=== PATIENT | male | born 1955 | race Caucasian/White ===

== ENCOUNTER → 2016-11-09 | Outpatient (CLI) | payer BC | END | disposition home or self-care (01) | LOC: LAB.O 08:19 | PROVIDERS: ATTEND Emergency Medicine | DX: Z00.00 Encounter for general adult medical examination without abnormal findings (principal); I10 Essential (primary) hypertension; E78.5 Hyperlipidemia, unspecified ==

== ENCOUNTER 2016-11-14 05:06 | Emergency (ER) | payer BC ==
--- NOTE | 2016-11-14 05:23 | ED.PDOC ---
History of Present Illness - General Source: patient, RN notes reviewed, Vital Signs reviewed, EMS Exam Limitations: no limitations - History of Present Illness Initial Comments: Per EMS they were called to [facility] due to patient being confused and disoriented. Could not remember date or where he was. Patient reports he feels fine and that his only problem is he should not have gone to sleep. He was at work and was on lunch break. Reports he fell asleep in his car. Very poor historian. Can't tell me where he is or what year it is. He appears to have vomited at some point. Coworkers found him in his car because he backed up over some carts. He keeps telling the nurses that he weighs 2090#s at the end of the month. Timing/Duration: unknown Severity: moderate Improving Factors: nothing Worsening Factors: nothing Associated Symptoms: confusion <Areli Cronin - Last Filed: 11/14/16 06:49> <Cortez Jaime - Last Filed: 11/14/16 13:14> - General Chief Complaint: Neuro Symptoms/Deficits Stated Complaint: disoriented Time Seen by Provider: 11/14/16 05:12 - History of Present Illness Allergies/Adverse Reactions: Allergies NO KNOWN ALLERGY Allergy (Verified 11/14/16 05:42) Home Medications: Ambulatory Orders Lisinopril & Hydrochlorothiazi 11/14/16 Review of Systems - Review of Systems Review of Systems: 11/14/16 05:29 Patient reports no symptoms. Answered no to every question Constitutional: States: no symptoms reported. Denies: chills, fever, malaise EENTM: States: no symptoms reported. Denies: blurred vision Respiratory: States: no symptoms reported. Denies: cough, short of breath Cardiology: States: no symptoms reported. Denies: chest pain, palpitations, syncope Gastrointestinal/Abdominal: States: no symptoms reported. Denies: abdominal pain Musculoskeletal: States: no symptoms reported Skin: States: no symptoms reported Neurological: States: other - confused. Denies: headache <Areli Cronin - Last Filed: 11/14/16 06:49> Past Medical History (General) - Patient Medical History Hx Other PMH: Yes - Brain Abscess Surgical History: other <Cortez Jaime - Last Filed: 11/14/16 13:14> Family Medical History - Family History Father Family History: Unknown <Areli Cronin - Last Filed: 11/14/16 06:49> Physical Exam - Physical Exam General Appearance: Alert, Comfortable, No apparent distress, Obese, Well Developed, Well Groomed, Well Hydrated, Well Nourished Eye Exam: bilateral normal ENT Exam: hearing grossly normal, TMs normal, pharynx normal, other - Appears to have bit his tongue Neck: full range of motion, supple, normal inspection Respiratory: lungs clear, normal breath sounds, no respiratory distress, no accessory muscle use Cardiovascular/Chest: no gallop, tachycardia, systolic murmur Peripheral Pulses: posterior tibialis,right: 2+, posterior tibialis,left: 2+ Gastrointestinal/Abdominal: normal bowel sounds, non tender, soft, no organomegaly, no pulsatile mass Extremities Exam: non-tender, normal range of motion, no evidence of injury, no edema 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 He has surgery at that time. His symptoms prior to that were just progressive confusion. 11/14/16 06:10 Patient is less confused. Now can remember date and who president is. Reports he remembers trying to move his car and backing into carts. Remembers people coming out from work to check on him. Labs show elevated WBC, BUN, Creatinine, CPK and CK-MB. Will given IV fluids and plan to repeat cardiac enzymes in [address] and CXR show no acute changes. 11/14/16 06:12 Per patient and no history of heart murmur bur he currently has a distinct 3/6 systolic murmur. 11/14/16 06:49 Lactic Acid elevated @ 3.2. Will get UA and blood culture 11/14/16 06:[address] Jaime @ 07:00 - EKG/XRAY/CT EKG: Atrial, Tachy, ST depression - V4-6 Comments: Rate 104 <Areli Cronin - Last Filed: 11/14/16 06:49> - Results/Orders Results/Orders: Laboratory Tests 11/14/16 11/14/16 11/14/16 05:20 05:20 06:10 WBC 18.2 H RBC 5.10 Hgb 15.0 Hct 44.6 MCV 87.3 MCH 29.4 MCHC 33.7 RDW 14.1 Plt Count 251 MPV 9.1 Absolute Neuts (auto) 15.70 H Absolute Lymphs (auto) 1.90 Absolute Monos (auto) 0.50 Absolute Eos (auto) 0.00 Absolute Basos (auto) 0.10 Neutrophils % 86.3 H Lymphocytes % 10.5 L Monocytes % 2.7 Eosinophils % 0.2 L Basophils % 0.3 Sodium 134 L Potassium 4.4 Chloride 101 Carbon Dioxide 18 L Anion Gap 19.4 H BUN 32 H Creatinine 1.78 H BUN/Creatinine Ratio 18.0 Random Glucose 246 H Serum Osmolality 283.3 Lactic Acid 3.2 H* Calcium 9.5 Total Bilirubin 0.6 AST 31 ALT 39 Alkaline Phosphatase 69 Creatine Kinase 261 H* CK-MB (CK-2) 4.8 H* CK-MB (CK-2) % 1.84 Troponin I 0.03 Serum Total Protein 7.7 Albumin 4.6 Globulin 3.1 Albumin/Globulin Ratio 1.5 Urine Color Urine Appearance Urine pH Ur Specific [place] Urine Protein Urine Glucose (UA) Urine Ketones Urine Blood Urine Nitrite Urine Bilirubin Urine Urobilinogen Ur Leukocyte Esterase Urine RBC Urine WBC Ur Epithelial Cells Urine Bacteria Hyaline Casts 11/14/16 06:54 WBC RBC Hgb Hct MCV MCH MCHC RDW Plt Count MPV Absolute Neuts (auto) Absolute Lymphs (auto) Absolute Monos (auto) Absolute Eos (auto) Absolute Basos (auto) Neutrophils % Lymphocytes % Monocytes % Eosinophils % Basophils % Sodium Potassium Chloride Carbon Dioxide Anion Gap BUN Creatinine BUN/Creatinine Ratio Random Glucose Serum Osmolality Lactic Acid Calcium Total Bilirubin AST ALT Alkaline Phosphatase Creatine Kinase CK-MB (CK-2) CK-MB (CK-2) % Troponin I Serum Total Protein Albumin Globulin Albumin/Globulin Ratio Urine Color Yellow Urine Appearance Clear Urine pH 5.5 Ur Specific [place] >= 1.030 Urine Protein 100 H Urine Glucose (UA) Negative Urine Ketones Negative Urine Blood Trace-lysed H Urine Nitrite Negative Urine Bilirubin Negative Urine Urobilinogen 0.2 Ur Leukocyte Esterase Negative Urine RBC 0-1 Urine WBC 0-1 Ur Epithelial Cells 1-3 Urine Bacteria Rare Hyaline Casts 0-1 Laboratory Tests 11/14/16 11/14/16 11/14/16 05:20 05:20 06:10 WBC 18.2 H RBC 5.10 Hgb 15.0 Hct 44.6 MCV 87.3 MCH 29.4 MCHC 33.7 RDW 14.1 Plt Count 251 MPV 9.1 Absolute Neuts (auto) 15.70 H Absolute Lymphs (auto) 1.90 Absolute Monos (auto) 0.50 Absolute Eos (auto) 0.00 Absolute Basos (auto) 0.10 Neutrophils % 86.3 H Lymphocytes % 10.5 L Monocytes % 2.7 Eosinophils % 0.2 L Basophils % 0.3 Sodium 134 L Potassium 4.4 Chloride 101 Carbon Dioxide 18 L Anion Gap 19.4 H BUN 32 H Creatinine 1.78 H BUN/Creatinine Ratio 18.0 Random Glucose 246 H Serum Osmolality 283.3 Lactic Acid 3.2 H* Calcium 9.5 Total Bilirubin 0.6 AST 31 ALT 39 Alkaline Phosphatase 69 Creatine Kinase 261 H* CK-MB (CK-2) 4.8 H* CK-MB (CK-2) % 1.84 Troponin I 0.03 Serum Total Protein 7.7 Albumin 4.6 Globulin 3.1 Albumin/Globulin Ratio 1.5 Urine Color Urine Appearance Urine pH Ur Specific [place] Urine Protein Urine Glucose (UA) Urine Ketones Urine Blood Urine Nitrite Urine Bilirubin Urine Urobilinogen Ur Leukocyte Esterase Urine RBC Urine WBC Ur Epithelial Cells Urine Bacteria Hyaline Casts CSF Appearance CSF Color CSF WBC CSF RBC CSF Neutrophils CSF Lymphocytes CSF Glucose CSF Total Protein 11/14/16 11/14/16 11/14/16 06:54 08:25 08:25 WBC RBC Hgb Hct MCV MCH MCHC RDW Plt Count MPV Absolute Neuts (auto) Absolute Lymphs (auto) Absolute Monos (auto) Absolute Eos (auto) Absolute Basos (auto) Neutrophils % Lymphocytes % Monocytes % Eosinophils % Basophils % Sodium Potassium Chloride Carbon Dioxide Anion Gap BUN Creatinine BUN/Creatinine Ratio Random Glucose Serum Osmolality Lactic Acid Calcium Total Bilirubin AST ALT Alkaline Phosphatase Creatine Kinase CK-MB (CK-2) CK-MB (CK-2) % Troponin I Serum Total Protein Albumin Globulin Albumin/Globulin Ratio Urine Color Yellow Urine Appearance Clear Urine pH 5.5 Ur Specific [place] >= 1.030 Urine Protein 100 H Urine Glucose (UA) Negative Urine Ketones Negative Urine Blood Trace-lysed H Urine Nitrite Negative Urine Bilirubin Negative Urine Urobilinogen 0.2 Ur Leukocyte Esterase Negative Urine RBC 0-1 Urine WBC 0-1 Ur Epithelial Cells 1-3 Urine Bacteria Rare Hyaline Casts 0-1 CSF Appearance Clear CSF Color Colorless CSF WBC 0 CSF RBC 1 CSF Neutrophils 0.0 CSF Lymphocytes 0.0 CSF Glucose 95 H* CSF Total Protein 48.4 H* 11/14/16 11/14/16 11/14/16 08:45 08:45 11:50 WBC RBC Hgb Hct MCV MCH MCHC RDW Plt Count MPV Absolute Neuts (auto) Absolute Lymphs (auto) Absolute Monos (auto) Absolute Eos (auto) Absolute Basos (auto) Neutrophils % Lymphocytes % Monocytes % Eosinophils % Basophils % Sodium Potassium Chloride Carbon Dioxide Anion Gap BUN Creatinine BUN/Creatinine Ratio Random Glucose Serum Osmolality Lactic Acid 1.5 Calcium Total Bilirubin AST ALT Alkaline Phosphatase Creatine Kinase CK-MB (CK-2) CK-MB (CK-2) % Troponin I 1.36 H* 3.36 H* Serum Total Protein Albumin Globulin Albumin/Globulin Ratio Urine Color Urine Appearance Urine pH Ur Specific [place] Urine Protein Urine Glucose (UA) Urine Ketones Urine Blood Urine Nitrite Urine Bilirubin Urine Urobilinogen Ur Leukocyte Esterase Urine RBC Urine WBC Ur Epithelial Cells Urine Bacteria Hyaline Casts CSF Appearance CSF Color CSF WBC CSF RBC CSF Neutrophils CSF Lymphocytes CSF Glucose CSF Total Protein <Cortez Jaime R - Last Filed: 11/14/16 13:14> Procedures - Additional Procedures Additional Procedures: lumbar puncture - Patient placed sitting position and advised to bent over area cleanse lumbosacra area then after strerile prepped space L4-L5 was localized and attempt 4x w/ spinal needle G22/3 1/2 inch unable to draw fluid then replaced with G 22 5 inch spinal needle and able to get to L4-L5 space 0pening pressure 3 clear fluid noted 4 tubes filled w/2ml of spinal fluid and sent to lab for spinal fluid analysis. Patient tolerated procedure well.l <Cortez Jaime - Last Filed: 11/14/16 13:14> Departure <RoseanneAreli - Last Filed: 11/14/16 06:49> - Departure Time of Disposition: 13:06 <Cortez Jaime - Last Filed: 11/14/16 13:14> - Departure Clinical Impression: Non-ST elevation [place] (NSTEMI), Renal insufficiency, Hyperglycemia, unspecified Altered mental status, unspecified Qualifiers: Altered mental status type: disorientation Qualified Code(s): R41.0 - Disorientation, unspecified Disposition: Transfer to Hospital Condition: Good Departure Forms: Patient Portal Self Enrollment Referrals: PALMER AQUINO [Primary Care Provider] - 1-2 Weeks Home Medications: Ambulatory Orders Lisinopril & Hydrochlorothiazi 11/14/16 Transfer to Outside Facility - Transfer Information Accepting Provider:: D/W Dr. Vivian Jackson-JUSTYNA Borja Accepting Facility: [facility] Reason for Transfer: required specialist not available <Cortez Jaime - Last Filed: 11/14/16 13:14>
--- NOTE | 2016-11-14 05:51 | RAD ---
Clinical History : confusion , MAIN Exam : Portable AP view of the chest 11/14/2016 5:18 AM CDT Comparisons : none Findings : The lungs are low in volume which accentuates the pulmonary vasculature. There is patchy bibasilar subsegmental airspace disease. There is otherwise no focal consolidation or pleural effusion.. The heart is normal in size. The mediastinal contours are normal in appearance. The thoracic spine is age appropriate. The shoulders are unremarkable. Limited evaluation of the upper abdomen demonstrates no gross abnormalities. Impression: Low lung volumes with patchy bibasilar airspace disease. Electronically signed by: Angélica Jaquez MD 11/14/2016 5:50 AM CDT
--- NOTE | 2016-11-14 05:55 | CT ---
Procedure: CT HEAD WITHOUT IV CONTRAST Exam Date: 11/14/2016 Ordering Provider: Areli Cronin Clinical Indication: confusion Comparison: None Technique: Using a helical scanner, sequential axial imaging of the brain was obtained without the administration of intravenous contrast. The exam was obtained from the skull base to vertex. This exam was performed according to our departmental dose optimization program which includes use of automated exposure control, adjustment of the mA and/or kV according to patient size and/or use of iterative reconstruction technique. Findings: Mild cerebral and cerebellar volume loss. There is no midline shift or hydrocephalus. There is no acute intracranial hemorrhage or mass effect. There is no acute infarct. Encephalomalacia in the left temporal/occipital region. Hypodensities in the periventricular and subcortical white matter of both cerebral hemispheres are nonspecific but likely related to chronic ischemic small vessel disease. Postsurgical changes in the posterior left calvarium. No acute calvarial fracture. There is no lytic or sclerotic lesion. The visualized paranasal sinuses and mastoid air cells are unremarkable. IMPRESSION: No acute intracranial abnormality demonstrated. Electronically signed by: Oswald Cartwright MD 11/14/2016 5:54 AM CDT
[2016-11-14] MEDS ORDERED: SODIUM CHLORIDE 0.9% 1000ML 1,000 ML IVS ONE (06:04)
[2016-11-14] MEDS ORDERED: LIDOCAINE 1% 10 ML VIAL INJ ONE (07:51)
[2016-11-14] MEDS ORDERED: cefTRIAXone SODIUM 2 GM in SODIUM CHL 0.9% 100ML MINI-BAG 100 ML IVPB ONE (08:37)
[2016-11-14] MEDS ORDERED: SODIUM CHL 0.9% 100ML MINI-BAG 100 ML IVPB ONE (08:47)
[2016-11-14] MEDS ORDERED: ASPIRIN TABLET 325 MG TAB PO ONE (12:52)
[2016-11-14 13:43] VITALS: BP 150/76; TEMP 99.1; O2SAT 95
== END 2016-11-14 13:43 | disposition short-term general hospital (02) ==
LOC: ER 05:06
DX: I21.4 Non-ST elevation (NSTEMI) myocardial infarction (principal); N28.9 Disorder of kidney and ureter, unspecified; R73.9 Hyperglycemia, unspecified; R41.0 Disorientation, unspecified
CPT/HCPCS: 36415; 36416; 70450; 71010; 80053; 81001; 82550; 82553; 82945; 83605; 84157; 84484; 85025; 86403; 87040; 87070; 87205; 89051; 93005; J0696; J7030; J7050

== ENCOUNTER 2017-04-06 19:40 | Emergency (ER) | payer BC ==
[~2017-04-06 19:40] MED LIST: MIDAZOLAM INJ 5 MG/5 ML VIAL ONE
[2017-04-06] MEDS ORDERED: SODIUM CHLORIDE 0.9% (FLUSH) 10 ML SYG IV PRN (19:51)
[2017-04-06] MEDS ORDERED: ASPIRIN TABLET 325 MG TAB PO ONE (19:51)
[2017-04-06] MEDS ORDERED: PHENYTOIN SODIUM INJ 100 MG/2 ML VIAL IV ONE (20:22)
[2017-04-06] MEDS ORDERED: PHENYTOIN SODIUM INJ 100 MG/2 ML VIAL ONE ×2 (20:22→20:23)
[2017-04-06] MEDS ORDERED: SODIUM CHLORIDE 0.9% IVPB ONE (20:23)
[2017-04-06] MEDS ORDERED: PHENYTOIN SODIUM IVPB ONE (20:23)
--- NOTE | 2017-04-06 20:31 | ED.PDOC ---
History of Present Illness - General Chief Complaint: Neuro Symptoms/Deficits Stated Complaint: altered LOC Time Seen by Provider: 04/06/17 19:43 Source: patient, family Exam Limitations: clinical condition - History of Present Illness Timing/Duration: 1/2 hour Severity: moderate Improving Factors: nothing Worsening Factors: nothing Associated Symptoms: denies symptoms Allergies/Adverse Reactions: Allergies NO KNOWN ALLERGY Allergy (Verified 04/06/17 19:56) Home Medications: Ambulatory Orders Lisinopril & Hydrochlorothiazi 11/14/16 Review of Systems - Review of Systems Constitutional: Denies: chills, diaphoresis, fever, weakness EENTM: Denies: eye pain, ear pain, ear discharge, throat pain, mouth pain Respiratory: Denies: cough, short of breath Cardiology: Denies: chest pain, edema Gastrointestinal/Abdominal: Denies: abdominal pain, diarrhea, nausea, vomiting Genitourinary: Denies: discharge, dysuria Musculoskeletal: Denies: joint pain, joint swelling, muscle pain Skin: Denies: change in hair/nails Neurological: Denies: headache, numbness, paresthesia, seizure, tremors Endocrine: Denies: increased hunger, increased thirst, increased urine Hematologic/Lymphatic: Denies: blood clots, easy bleeding Unable to Obtain Due To: condition All other Systems: Reviewed and Negative Past Medical History (General) - Patient Medical History Hx Cardiac Disorders: Yes - CABG 2017 Hx Congestive Heart Failure: No Hx Diabetes: Yes - Vaccination History Hx Tetanus, Diphtheria Vaccination: No Hx Influenza Vaccination: No Hx Pneumococcal Vaccination: No - Social History Hx Tobacco Use: Yes Hx Alcohol Use: No Family Medical History - Family History Father Family History: Unknown Physical Exam - Physical Exam General Appearance: Alert, Comfortable Eye Exam: bilateral normal ENT Exam: normal ENT inspection, hearing grossly normal, TMs normal Neck: non-tender, full range of motion, supple, normal inspection Respiratory: chest non-tender, lungs clear, normal breath sounds, no respiratory distress, no accessory muscle use Cardiovascular/Chest: normal peripheral pulses, regular rate, rhythm Gastrointestinal/Abdominal: normal bowel sounds, non tender, soft, no organomegaly Back Exam: normal inspection, no CVA tenderness Mental Status: alert, 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 HOW DOES NOT APPEAR TO BE ACUTE CONFUSION, BUT APPEARS TO BE INAPPROPRIATE WORD SELECTION LIKE WERNIKIES APHASIA. WILL ACTIVATE AN ACUTE STROKE. 04/06/17 20:[address] HAD SZ. HAD COLOR CHANGE TO BLUE WITH THIS. PLACED ON OXYGEN. I PLACED AN 18G IN THE LEFT EJ. GAVE ATIVAN 2MG X 2. STILL CONFUSED. IF REMAINS MARKEDLY CONFUSED WITH DEPRESSED LOC MAY NEED TO INTUBATE. UNLIKELY A TPA CANDIDATE GIVEN THE INTRACRANIAL SURGERY. WILL DISCUSS WITH NEUROLOGY AND WILL NEED TRANSFER TO HIGHER LEVEL OF CARE. 04/06/17 20:47 ct without acute intra-cranial hemorrhage. still markedly depressed level of consciousness. will intubate for airway protection. i have discussed with Dr ARTHUR, AGREE WITH SZ IS NOT A TPA CANDIDATE. WILL TRANSFER TO [facility] ER. 04/06/17 21:24 NOT ROUSING WELL, SO WAS INTUBATED FOR AIRWAY PROTECTION. WILL START ON VERSED DRIP. BECAME HYPOTENSIVE. FLUID BOLUS GIVEN. PT CRITCALLY ILL. - Results/Orders Results/Orders: 04/06/17 19:51 Sodium Chloride 0.9% (Flush) [Saline Flush Syringe] 10 ml IV PRN PRN 04/06/17 19:52 IV Care:Saline Lock per Protoc QSHIFT Telemetry .ONCE EKG Assessment ONCE 04/06/17 20:00 EKG STAT 04/06/17 20:50 Mechanical Ventilation DAILY 04/06/17 21:00 Midazolam Inj [Versed Inj] 25 mg Sodium Chloride 0.9% 50Ml [NS 50ml] 25 ml IVPB .Q24H 04/06/17 21:23 Chest,1 View [RAD] Stat 04/06/17 21:25 Chest,1 View [RAD] Stat Laboratory Results - last 24 hr 04/06/17 04/06/17 04/06/17 20:35 20:35 20:35 WBC 13.8 H RBC 5.27 Hgb 14.5 Hct 45.2 MCV 85.8 MCH 27.6 MCHC 32.1 L RDW 17.1 H Plt Count 261 MPV 8.8 Absolute Neuts (auto) 6.80 Absolute Lymphs (auto) 4.80 H Absolute Monos (auto) 1.80 H Absolute Eos (auto) 0.30 Absolute Basos (auto) 0.10 Neutrophils % 49.2 Lymphocytes % 34.8 Monocytes % 13.0 H Eosinophils % 2.1 Basophils % 0.9 PT 11.5 INR 1.020 PTT (SP) 36.2 Sodium 135 Potassium 4.2 Chloride 96 L Carbon Dioxide 17 L Anion Gap 26.2 H BUN 23 H Creatinine 1.82 H BUN/Creatinine Ratio 12.6 POC Glucose Random Glucose 132 H Serum Osmolality 275.6 Calcium 9.6 Total Bilirubin 0.8 AST 30 ALT 23 Alkaline Phosphatase 113 Creatine Kinase 182 H CK-MB (CK-2) 2.6 CK-MB (CK-2) % Not Reportable Troponin I < 0.02 Serum Total Protein 7.5 Albumin 4.5 Globulin 3.0 Albumin/Globulin Ratio 1.5 04/06/17 20:35 WBC RBC Hgb Hct MCV MCH MCHC RDW Plt Count MPV Absolute Neuts (auto) Absolute Lymphs (auto) Absolute Monos (auto) Absolute Eos (auto) Absolute Basos (auto) Neutrophils % Lymphocytes % Monocytes % Eosinophils % Basophils % PT INR PTT (SP) Sodium Potassium Chloride Carbon Dioxide Anion Gap BUN Creatinine BUN/Creatinine Ratio POC Glucose 126 H Random Glucose Serum Osmolality Calcium Total Bilirubin AST ALT Alkaline Phosphatase Creatine Kinase CK-MB (CK-2) CK-MB (CK-2) % Troponin I Serum Total Protein Albumin Globulin Albumin/Globulin Ratio - EKG/XRAY/CT EKG: Sinus - SINUS RYTHM AT 85, AXIS IS NORMAL, PROLONGED WY INTERVAL, NO ACUTE ST SEGMENT CHANGES. IMPRESSION: NRS WITH 1ST DEGREE AV BLOCK. Procedures - Intubation Time of Intubation: 21:15 Intubation Method: orotracheal Tube Size (cm): 7.5 Medications: Succinylcholine Breath Sounds after Intubation: equal Intubation Complications: no complications Post Intubation Xray: Yes Progress/Xray Impression: GOOD PLACEMENT Departure - Departure Clinical Impression: Acute ischemic stroke, Wernicke dysphasia, Tonic-clonic generalized seizure, Stroke-like symptoms Clinical Impression: (Ruled Out): Bipolar disorder, Depressive disorder, Drug overdose, Dementia, Hyponatremia, Hypernatremia, Subacute subdural hematoma, Intracerebral hemorrhage, Subarachnoid hematoma Time of Disposition: 22:00 Disposition: Transfer to Hospital Condition: Serious Departure Forms: ED Discharge - Pt. Copy, Patient Portal Self Enrollment Referrals: PALMER AQUINO [Primary Care Provider] - 1-2 Weeks Home Medications: Ambulatory Orders Lisinopril & Hydrochlorothiazi 11/14/16 Critical Care Note - Critical Care Note Total Time (mins): 55 Comments: CRITICAL CARE NOTE CRITICAL CARE INDICATION: STATUS EPILEPTICUS, ACUTE STROKE, WERNIKIES APHASIA, RESPIRATORY FAILURE, HYPOTENSION CRITICAL CARE FINDINGS: PROLONGED SEIZURE ACTIVITY, DEPRESSED LOC, SYSTOLIC BP OF 74 CRITICAL CARE INTERVENTIONS: MULTIPLE CONSULTANTS, IV ATIVAN, IV DILANTIN, VENTILATOR MANAGEMENT CRITICAL CARE TIME: 55 MINUTES WHERE SPENT AT THE BEDSIDE PERFORMING THE INITIAL HISTORY AND PE, PLACING ORDERS, CHART AND IMAGING REVIEW, DOCUMENTATION TIME. Transfer to Outside Facility - Transfer Information Accepting Provider:: VIV Accepting Facility: [facility] Reason for Transfer: ICU
[2017-04-06 20:44] VITALS: O2SAT 97
--- NOTE | 2017-04-06 20:44 | CT ---
EXAM: Head CLINICAL INDICATION: 61-year-old male with new onset Wernicke's aphasia. COMPARISON: None. TECHNIQUE: CT brain without contrast. This exam was performed according to our departmental dose optimization program which includes use of automated exposure control, adjustment of the mA and/or kV according to patient size and/or use of iterative reconstruction technique. FINDINGS: Examination findings are limited secondary to streak artifact through the skull base, posterior fossa and anterior temporal lobes. Multifocal regions of patchy hypoattenuation are present in a subcortical and periventricular deep white matter distribution, nonspecific; however, most likely represent small vessel ischemic disease, age indeterminate. Focal area subcortical hypoattenuation suggestive of gliosis and encephalomalacia present at the level of the posterior lateral LEFT temporal lobe stable in comparison to the previous examination ingesting sequela of prior surgery. Adjacent calvarial postoperative changes with overlying surgical plates stable in appearance since the previous examination. The ventricles, sulci, and cisterns are symmetric and unremarkable. The lees-white matter differentiation is preserved. There is no mass effect, midline shift, intra- or extra-axial fluid collection/acute hemorrhage. The osseous structures are unremarkable. The paranasal sinuses and mastoid air cells are clear. IMPRESSION: 1. No acute intracranial abnormalities. Nonspecific white matter change most likely small vessel ischemic disease, age indeterminate. 2. CT is insensitive for early evaluation of acute stroke. If there is clinical concern for acute ischemia, an MRI may be considered. 3. Postoperative changes of the LEFT posterior lateral temporal lobe with gliosis and encephalomalacia stable in comparison to examination dated 11/14/2016. Electronically signed by: Enma Rosas MD 04/06/2017 8:43 PM [facility]
[2017-04-06] MEDS ORDERED: ETOMIDATE INJECTION 2 MG/ML 20ML VIAL IV ONE ×2 (20:52→21:15)
[2017-04-06] MEDS ORDERED: SUCCINYLCHOLINE CHLORIDE 200 MG/10 ML VIAL IV ONE (20:53)
[2017-04-06] MEDS ORDERED: SUCCINYLCHOLINE CHLORIDE 200 MG/10 ML VIAL ONE (20:55)
[2017-04-06] MEDS ORDERED: MIDAZOLAM INJ 5 MG/5 ML VIAL ONE ×3 (20:56→21:36)
[2017-04-06] MEDS ORDERED: MIDAZOLAM INJ 25 MG in SODIUM CHLORIDE 0.9% 50ML 25 ML IVPB SCH (21:00)
--- NOTE | 2017-04-06 21:00 | RAD ---
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 Lungs are otherwise clear. No pneumothorax or pleural effusion. Prior median sternotomy. Unremarkable cardiac silhouette. Impression: Mild bibasilar atelectasis. Electronically signed by: Jm Ortiz MD 04/06/2017 8:59 PM TIRE TRUCKER
[2017-04-06] MEDS ORDERED: SODIUM CHLORIDE 0.9% 100ML 0 ML IVPB ONE (21:15)
[2017-04-06] MEDS ORDERED: SODIUM CHLORIDE 0.9% 1000ML 1,000 ML ONE (21:17)
[2017-04-06] MEDS ORDERED: PHENYTOIN SODIUM INJ 250 MG/5 ML VIAL ONE (21:29)
[2017-04-06] MEDS ORDERED: SODIUM CHLORIDE 0.9% 100ML 100 ML IVPB ONE (21:30)
[2017-04-06] MEDS ORDERED: SODIUM CHLORIDE 0.9% 50ML 50 ML ONE (21:36)
--- NOTE | 2017-04-06 21:40 | RAD ---
Procedure: XR CHEST 1 VIEW Exam Date: 04/06/2017 9:25 PM CREDIT RISK ANALYST Ordering Provider: Charlie Torres Clinical Indication: tube placement Comparison: None Findings: The endotracheal tube tip is seen at the level of the jerome. NG tube tip is in the stomach but is difficult to assess secondary to patient body habitus and poor penetration of the x-ray beam. Lung volumes are low and there is bilateral perihilar atelectasis. No pleural effusion or pneumothorax is present. Heart size is upper limits of normal. Postoperative changes of previous CABG surgery are present. Impression: Support apparatus in expected position. Mild bilateral perihilar atelectasis. Previous CABG surgery. Electronically signed by: Darian Oden MD 04/06/2017 9:39 PM CREDIT RISK ANALYST
[2017-04-06 21:46] VITALS: TEMP 96.9
[2017-04-06 21:55] VITALS: BP 106/65
== END 2017-04-06 21:55 | disposition short-term general hospital (02) ==
LOC: ER 19:40
DX: I63.9 Cerebral infarction, unspecified (principal); R47.02 Dysphasia; G40.409 Other generalized epilepsy and epileptic syndromes, not intractable, without status epilepticus; Z95.1 Presence of aortocoronary bypass graft; Z87.891 Personal history of nicotine dependence
CPT/HCPCS: 31500; 36415; 70450; 71045; 80053; 82550; 82553; 82948; 84484; 85025; 85610; 85730; 93005; 94770; A4216; J0330; J2060; J2250; J7030; J7050

== ENCOUNTER 2018-01-10 15:00 | Emergency (ER) | payer BC ==
[2018-01-10 15:26] VITALS: TEMP 98.4
[2018-01-10] MEDS ORDERED: OXYMETAZOLINE NASAL SPRAY 15 ML BTTL ONE (16:04)
--- NOTE | 2018-01-10 16:14 | ED.PDOC ---
History of Present Illness - General Chief Complaint: ENT Problem Stated Complaint: Nose bleed x 1 1/2 hours Time Seen by Provider: 01/10/18 16:11 Source: patient Exam Limitations: no limitations - History of Present Illness Initial Comments: the patient is a 62-year-old male presenting to the emergency room secondary to right-sided epistaxis. The patient picked a scab in his nose and has been unable to stop the bleeding for the last couple of hours. He went to the urgent care center and they were unable to control it with exterior pressure. The source of the bleeding does appear to be the base of the nasal septum on the right approximately 1/2 inch back. There is a tissue tear there. Bleeding does appear to be venous rather than arterial. he does take Plavix as a blood thinner. Timing/Duration: 1-3 hours Severity: mild Improving Factors: nothing Worsening Factors: nothing Associated Symptoms: denies symptoms Allergies/Adverse Reactions: Allergies NO KNOWN ALLERGY Allergy (Verified 09/13/17 20:07) Home Medications: Ambulatory Orders Amlodipine Besylate 10 mg PO DAILY 09/13/17 Aspirin [Adult Aspirin Regimen] 81 mg PO DAILY 09/13/17 Atorvastatin Calcium [Lipitor] 40 mg PO BEDTIME 09/13/17 Carvedilol [Coreg] 6.25 mg PO BID 09/13/17 Clopidogrel Bisulfate [Plavix] 75 mg PO QD 09/13/17 Lisinopril & Hydrochlorothiazi [Lisinopril/Hctz 10-12.5 mg] 1 tab PO DAILY 09/13 Multiple Vitamins W/ Minerals [Mens 50+ Multi Vitamin &] 1 tab PO DAILY Pantoprazole Tablet [Protonix] 40 mg PO BID 09/13/17 Spironolactone 25 mg PO DAILY 09/13/17 Amoxicillin & Pot Clavulanate [Augmentin Tab] 875 mg PO BID #14 tab 09/14/17 carBAMazepine [Tegretol] 200 mg PO BID #60 tab 09/14/17 Review of Systems - Review of Systems Constitutional: States: no symptoms reported EENTM: States: see HPI Respiratory: States: no symptoms reported Cardiology: States: no symptoms reported Gastrointestinal/Abdominal: States: no symptoms reported Genitourinary: States: no symptoms reported Musculoskeletal: States: no symptoms reported Skin: States: no symptoms reported Neurological: States: no symptoms reported Endocrine: States: no symptoms reported All other Systems: No Change from Baseline Past Medical History (General) - Patient Medical History Hx Seizures: Yes Hx Stroke: No Hx Asthma: No Hx of COPD: No Hx Cardiac Disorders: Yes - [place] Hx Congestive Heart Failure: No Hx Pacemaker: No Hx Hypertension: Yes Hx Diabetes: Yes - pre diabetic Hx MRSA: No Surgical History: coronary bypass surgery - Vaccination History Hx Tetanus, Diphtheria Vaccination: No Hx Influenza Vaccination: Yes Hx Pneumococcal Vaccination: No - Social History Hx Tobacco Use: No Hx Alcohol Use: No Hx Substance Use: No Hx Physical Abuse: No Hx Emotional Abuse: No - Activities of Daily Living Detention/Assisted Living (if applicable):: [facility] Family Medical History - Family History Father Family History: Unknown Age (years): 88 Living Status: Still Living Hx Cardiac Disease: Yes Mother Age at (years of age): 65 Hx Family Cancer: Yes Maternal Grandparents Age at (years of age): 80 Hx Family Congestive Heart Failure: Yes Physical Exam - Physical Exam General Appearance: Alert, Comfortable, No apparent distress Eye Exam: bilateral normal Ears, Nose, Throat: hearing grossly normal, other - see history of present illness Neck: non-tender, supple Respiratory: no respiratory distress, no accessory muscle use Cardiovascular/Chest: normal peripheral pulses, no edema Peripheral Pulses: radial,right: 2+, radial,left: 2+ Gastrointestinal/Abdominal: non tender - obese, soft Rectal Exam: deferred Back Exam: no CVA tenderness, no vertebral tenderness Extremity: normal range of motion, no pedal edema, normal capillary refill Neurologic: relay dispatcher II-XII nml as tested, alert, normal mood/affect, oriented x 3 Skin Exam: normal color Comments: Vital Signs - 24 hr 01/10/18 15:19 Temperature 98.4 F Pulse Rate [ 80 Left Brachial] Respiratory 20 Rate Blood Pressure 140/81 [Left Arm] O2 Sat by Pulse 95 Oximetry Progress - Progress Progress: 01/10/18 16:14 the patient is a 62-year-old male presenting to emergency room with right-sided anterior epistaxis. We have been unable to control it with external pressure and Afrin was used at the outpatient clinic prior. The patient underwent anterior nasal packing with a Rhino Rocket. The patient tolerated this well. It can be deflated and removed in 2 days by his . Tranquillity Delmar nasal spray can be used several times daily to prevent dryness and prevent further epistaxis issues. He does need to keep his CPAP humidified. Keep follow-up with primary care doctor otherwise. Plan to hold Plavix for 1-2 days only. Departure - Departure Clinical Impression: Epistaxis Disposition: Discharge to Home or Self Care Condition: Fair Departure Forms: ED Discharge - Pt. Copy, Patient Portal Self Enrollment Instructions: Nosebleeds (DC) Diet: regular diet Activity: increase activity as tolerated Referrals: CAMERON AQUINO [Primary Care Provider] - 1-2 Weeks Home Medications: Ambulatory Orders Amlodipine Besylate 10 mg PO DAILY 09/13/17 Aspirin [Adult Aspirin Regimen] 81 mg PO DAILY 09/13/17 Atorvastatin Calcium [Lipitor] 40 mg PO BEDTIME 09/13/17 Carvedilol [Coreg] 6.25 mg PO BID 09/13/17 Clopidogrel Bisulfate [Plavix] 75 mg PO QD 09/13/17 Lisinopril & Hydrochlorothiazi [Lisinopril/Hctz 10-12.5 mg] 1 tab PO DAILY 09/13 Multiple Vitamins W/ Minerals [Mens 50+ Multi Vitamin &] 1 tab PO DAILY Pantoprazole Tablet [Protonix] 40 mg PO BID 09/13/17 Spironolactone 25 mg PO DAILY 09/13/17 Amoxicillin & Pot Clavulanate [Augmentin Tab] 875 mg PO BID #14 tab 09/14/17 carBAMazepine [Tegretol] 200 mg PO BID #60 tab 09/14/17 Additional Instructions: the patient is a 62-year-old male presenting to emergency room with right-sided anterior epistaxis. We have been unable to control it with external pressure and Afrin was used at the outpatient clinic prior. The patient underwent anterior nasal packing with a Rhino Rocket. The patient tolerated this well. It can be deflated and removed in 2 days by his . Tranquillity Delmar nasal spray can be used several times daily to prevent dryness and prevent further epistaxis issues. He does need to keep his CPAP humidified. Keep follow-up with primary care doctor otherwise. Plan to hold Plavix for 1-2 days only.
[2018-01-10 16:25] VITALS: BP 136/75; O2SAT 96
== END 2018-01-10 16:24 | disposition home or self-care (01) ==
LOC: ER 15:00
DX: R04.0 Epistaxis (principal); I25.2 Old myocardial infarction; I10 Essential (primary) hypertension; R73.03 Prediabetes; Z95.1 Presence of aortocoronary bypass graft; Z79.02 Long term (current) use of antithrombotics/antiplatelets; Z79.82 Long term (current) use of aspirin; Z79.899 Other long term (current) drug therapy

== ENCOUNTER 2019-11-10 20:10 | Emergency (ER) | payer BC, MEDICARE ==
[2019-11-10 21:17] VITALS: TEMP 98
[2019-11-10] MEDS ORDERED: SODIUM CHLORIDE 0.9% (FLUSH) 10 ML SYG IV PRN (21:22)
--- NOTE | 2019-11-10 21:27 | ED.PDOC ---
History of Present Illness - General Chief Complaint: Neuro Symptoms/Deficits Stated Complaint: altered MS earlier, better now Time Seen by Provider: 11/10/19 20:45 Source: patient - History of Present Illness Initial Comments: 64-year-old male with past medical history of hypertension, seizure disorder who presents with chief complaint of altered mental status. Patient is brought in by daughter from home. Daughter states symptoms began suddenly about 1 hour ago at home. Patient had an episode of nausea and nonbloody nonbilious emesis x1 and then shortly afterwards appeared to be confused. He was calling his daughter by the wrong name and he was also repeatedly asking what was going on. It was very unusual and alarming to the daughter. The patient reports that he recalls the entire event but does not recall feeling confused or any other acute symptoms at that time. The daughter brought the patient up to the emergency room and reports that the symptoms all resolved after about 15 minutes while they were waiting in the ED waiting room. Currently the patient is without any complaints and the daughter states that he is back to his normal self. Patient reports he had a similar episode about 1 year ago which was unexplainable. He reports a history of a brain abscess about 5 or 6 years ago which was treated in [place]. Afterwards he developed complications of seizure disorder which is been well managed on seizure medications. Denies any other acute symptoms. Denies facial droop, slurred speech, weakness, numbness, headache, fevers, chills, neck stiffness, chest pain, shortness of breath, abdominal pain, diarrhea, urinary symptoms. Denies any history of stroke to his knowledge. Allergies/Adverse Reactions: Allergies NO KNOWN ALLERGY Allergy (Verified 11/10/19 21:17) Home Medications: Ambulatory Orders Amlodipine Besylate 10 mg PO DAILY 09/13/17 Aspirin [Adult Aspirin Regimen] 81 mg PO DAILY 09/13/17 Atorvastatin Calcium [Lipitor] 40 mg PO BEDTIME 09/13/17 Carvedilol [Coreg] 6.25 mg PO BID 09/13/17 Clopidogrel Bisulfate [Plavix] 75 mg PO QD 09/13/17 Lisinopril & Hydrochlorothiazi [Lisinopril/Hctz 10-12.5 mg] 1 tab PO DAILY 09/13/17 Multiple Vitamins W/ Minerals [Mens 50+ Multi Vitamin &] 1 tab PO DAILY 09/13/17 Pantoprazole Tablet [Protonix] 40 mg PO BID 09/13/17 Spironolactone 25 mg PO DAILY 09/13/17 Amoxicillin & Pot Clavulanate [Augmentin Tab] 875 mg PO BID #14 tab 09/14/17 carBAMazepine [Tegretol] 200 mg PO BID #60 tab 09/14/17 Review of Systems - Review of Systems Review of Systems: 11/10/19 21:26 as per HPI All other Systems: Reviewed and Negative Past Medical History (General) - Patient Medical History Hx Seizures: Yes Hx Stroke: No Hx Dementia: No Hx Asthma: No Hx of COPD: No Hx Cardiac Disorders: Yes - [place] Hx Congestive Heart Failure: No Hx Pacemaker: No Hx Hypertension: Yes Hx Thyroid Disease: No Hx Diabetes: Yes - pre diabetic Hx Gastroesophageal Reflux: No Hx Renal Disease: No Hx Cancer: No Hx of HIV: No Hx Hepatitis C: No Hx MRSA: No Surgical History: other - Vaccination History Hx Tetanus, Diphtheria Vaccination: No Hx Influenza Vaccination: Yes Hx Pneumococcal Vaccination: Yes - Social History Hx Tobacco Use: No Hx Alcohol Use: Yes Hx Substance Use: No Hx Physical Abuse: No Hx Emotional Abuse: No Family Medical History - Family History Father Family History: Unknown Age (years): 88 Living Status: Still Living Hx Cardiac Disease: Yes Mother Age at (years of age): 65 Hx Family Cancer: Yes Maternal Grandparents Age at (years of age): 80 Hx Family Congestive Heart Failure: Yes Physical Exam - Physical Exam General Appearance: Alert, Comfortable, No apparent distress Eye Exam: bilateral normal Ears, Nose, Throat: hearing grossly normal, normal ENT inspection, normal pharynx Neck: non-tender, full range of motion, supple, normal inspection Respiratory: chest non-tender, lungs clear, normal breath sounds, no respiratory distress, no accessory muscle use Cardiovascular/Chest: normal peripheral pulses, regular rate, rhythm, no edema, no gallop, no JVD, no murmur Peripheral Pulses: radial,right: 2+, radial,left: 2+ Gastrointestinal/Abdominal: non tender, soft, no organomegaly Back Exam: normal inspection, no CVA tenderness, no vertebral tenderness Extremity: normal range of motion, non-tender, normal inspection, no pedal edema, no calf tenderness, normal capillary refill Neurologic: network liaison II-XII nml as tested, no motor/sensory deficits, alert, normal mood/affect, oriented x 3 Skin Exam: normal color, warm/dry Progress - Progress Progress: 11/10/19 21:27 Acute transient altered mental status -Periodic presentation. Consider TIA/CVA, seizure, metabolic derangement, infection, other -Patient stable, vitals within normal limits, NIH stroke scale in the ED is 0. -Obtain stroke work-up with CT imaging of the head, blood work, cardiac work-up, place PIV 11/11/19 22:55 -Patient became very impatient and was wanting to leave prior to his ED work-up being completed and radiographic imaging results back. He stated he would just go see his doctor tomorrow in the clinic to follow-up. AMA paperwork was signed and patient dismissed. -CT head resulted shortly after patient's discharge - revealed no acute processes. Chronic microvascular ischemic changes and area of old infarct noted to Left occipital temporal region. Labs largely unremarkable besides evidence of CKD. Antonio Oneal MD Billing #[id number] 11/10/19 21:30 EKG STAT Laboratory Results - last 24 hr 11/10/19 11/10/19 11/10/19 21:10 21:10 21:10 WBC 4.8 RBC 5.48 Hgb 16.4 Hct 47.6 MCV 87.0 MCH 30.0 MCHC 34.4 RDW 13.8 Plt Count 154 MPV 8.5 Absolute Neuts (auto) 3.20 Absolute Lymphs (auto) 0.80 L Absolute Monos (auto) 0.80 Absolute Eos (auto) 0.00 Absolute Basos (auto) 0.10 Neutrophils % 65.9 Lymphocytes % 16.7 L Monocytes % 15.7 H Eosinophils % 0.6 L Basophils % 1.1 PT INR PTT (SP) Sodium 140 Potassium 4.1 Chloride 100 L Carbon Dioxide 30 Anion Gap 14.1 BUN 23 H Creatinine 1.32 H BUN/Creatinine Ratio 17.4 Random Glucose 148 H Serum Osmolality 285.8 Calcium 9.5 Total Bilirubin 0.4 AST 26 ALT 39 Alkaline Phosphatase 118 Ammonia Creatine Kinase 153 CK-MB (CK-2) 1.4 CK-MB (CK-2) % Not Reportable Troponin I < 0.02 B-Natriuretic Peptide Serum Total Protein 7.7 Albumin 4.6 Globulin 3.1 Albumin/Globulin Ratio 1.5 1011/10/19 11/10/19 21:10 21:10 21:31 WBC RBC Hgb Hct MCV MCH MCHC RDW Plt Count MPV Absolute Neuts (auto) Absolute Lymphs (auto) Absolute Monos (auto) Absolute Eos (auto) Absolute Basos (auto) Neutrophils % Lymphocytes % Monocytes % Eosinophils % Basophils % PT 10.4 INR 1.05 PTT (SP) 29.6 Sodium Potassium Chloride Carbon Dioxide Anion Gap BUN Creatinine BUN/Creatinine Ratio Random Glucose Serum Osmolality Calcium Total Bilirubin AST ALT Alkaline Phosphatase Ammonia 26 Creatine Kinase CK-MB (CK-2) CK-MB (CK-2) % Troponin I B-Natriuretic Peptide < 15.0 Serum Total Protein Albumin Globulin Albumin/Globulin Ratio - EKG/XRAY/CT EKG: Sinus - Normal sinus rhythm, heart rate 80, no ST elevations noted, no Q waves noted, axis normal, [place] interval prolonged 214 ms, intervals otherwise normal, compared to 09/13/2017 EKG sinus tachycardia is now resolved and [place] prolongation appears new. XRAY: chest - no acute processes per my read Departure - Departure Clinical Impression: Transient ischaemic attack (TIA), and cerebral infarction without residual deficits Time of Disposition: 22:45 Disposition: Left Against Medical Advice Condition: Fair Departure Forms: ED Discharge - Pt. Copy, Patient Portal Self Enrollment Referrals: CAMERON AQUINO [Primary Care Provider] - 1-2 Weeks Home Medications: Ambulatory Orders Amlodipine Besylate 10 mg PO DAILY 09/13/17 Aspirin [Adult Aspirin Regimen] 81 mg PO DAILY 09/13/17 Atorvastatin Calcium [Lipitor] 40 mg PO BEDTIME 09/13/17 Carvedilol [Coreg] 6.25 mg PO BID 09/13/17 Clopidogrel Bisulfate [Plavix] 75 mg PO QD 09/13/17 Lisinopril & Hydrochlorothiazi [Lisinopril/Hctz 10-12.5 mg] 1 tab PO DAILY 09/13/17 Multiple Vitamins W/ Minerals [Mens 50+ Multi Vitamin &] 1 tab PO DAILY 09/13/17 Pantoprazole Tablet [Protonix] 40 mg PO BID 09/13/17 Spironolactone 25 mg PO DAILY 09/13/17 Amoxicillin & Pot Clavulanate [Augmentin Tab] 875 mg PO BID #14 tab 09/14/17 carBAMazepine [Tegretol] 200 mg PO BID #60 tab 09/14/17
[2019-11-10 21:38] VITALS: BP 129/94; O2SAT 95
--- NOTE | 2019-11-10 22:11 | RAD ---
EXAM DESCRIPTION: XR Chest,1 View CLINICAL HISTORY: altered mental status TECHNIQUE: Single frontal view of the chest is submitted. COMPARISON: 09/14/2017 FINDINGS: Heart: The cardiothoracic silhouette is within normal limits. Lungs: Coarsened interstitial markings. No focal consolidation. Mediastinum: Thoracic aortic atherosclerosis. Pleura: No appreciable effusion. No pneumothorax. Bones: Prior median sternotomy. Multilevel spondylosis. No acute fracture. Upper abdomen: Unremarkable IMPRESSION: No acute disease. Electronically signed by: Jil Walker MD 11/10/2019 10:10 PM CDT
--- NOTE | 2019-11-10 22:49 | CT ---
EXAM: Head HISTORY: 64 years Male altered mental status, now resolved COMPARISON: 09/13/2017 TECHNIQUE: Contiguous axial images of the head were obtained from the skull base through the vertex without IV contrast followed by multiplanar reformats. This exam was performed according to our departmental dose-optimization program, which includes automated exposure control, adjustment of the mA and/or kV according to patient size and/or use of iterative reconstruction technique. FINDINGS: Generalized parenchymal volume loss. No hydrocephalus. No midline shift, mass effect or abnormal extraaxial collection. No acute intracranial hemorrhage or infarct. Chronic microangiopathic ischemic white matter changes. Chronic left occipital parietal infarct, as before. 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 The status post inguinal reflecting, without failure. No Orbital contents are unremarkable. The paranasal sinuses and mastoid air cells are well pneumatized. No acute calvarial abnormality. IMPRESSION: 1. No acute intracranial pathology. 2. Chronic microangiopathic ischemic white matter changes and old left occipital temporal infarct. 3. Dolichoectasia of the intracranial arterial vasculature. Electronically signed by: Kishor Lara MD 11/10/2019 10:48 PM CDT
== END 2019-11-10 22:09 | disposition left against medical advice (07) ==
LOC: ER 20:10
DX: G45.9 Transient cerebral ischemic attack, unspecified (principal); I63.89 Other cerebral infarction; R41.82 Altered mental status, unspecified; R11.2 Nausea with vomiting, unspecified; I25.2 Old myocardial infarction; R73.03 Prediabetes; I10 Essential (primary) hypertension; G40.909 Epilepsy, unspecified, not intractable, without status epilepticus; Z53.29 Procedure and treatment not carried out because of patient's decision for other reasons; Z79.82 Long term (current) use of aspirin; Z79.02 Long term (current) use of antithrombotics/antiplatelets; Z79.899 Other long term (current) drug therapy